=== PATIENT | female | born 1975 | race Caucasian/White ===

== ENCOUNTER → 2016-11-27 | Outpatient (CLI) | payer OTHER ==
[~2016-11-27] MED LIST: LIDOCAINE 1%, 20ML ONE; MULTIHANCE 529 MG/ML, 5ML IV ONE; OMNIPAQUE 300 MG/ML, 10ML VIAL ONE
== END | disposition home or self-care (01) ==
LOC: CFH 13:33
PROVIDERS: ATTEND Orthopaedic Surgery
DX: S43.492A Other sprain of left shoulder joint, initial encounter (principal); M25.312 Other instability, left shoulder; X58.XXXA Exposure to other specified factors, initial encounter; Y93.89 Activity, other specified; Y92.89 Other specified places as the place of occurrence of the external cause; Y99.8 Other external cause status
CPT/HCPCS: 73040; 73222; A9577; J3490; Q9967

== ENCOUNTER → 2019-12-01 | Outpatient (CLI) | payer OTHER | END | disposition home or self-care (01) | LOC: CFH 15:01 | PROVIDERS: ATTEND Family Medicine | DX: Z87.442 Personal history of urinary calculi (principal) | CPT/HCPCS: 76770 ==